=== PATIENT | female | born 1945 | race Caucasian/White ===

== ENCOUNTER → 2016-05-15 | Outpatient (CLI) | payer MEDICARE, BC ==
[~2016-05-15] MED LIST: ASPIRIN81 M1 PO; ATENOLOL PO; BACLOFEN10 MG PO; BEE POLLEN 550 MG; BIOTIN 1000 MG; CALTRATE PLUS T1 TAB PO; CERTAGEN PO; DOXYCYCLINE HYC50 MG PO; DOXYCYCLINE PO; LOPID600 MG PO; NEXIUM PO; NORVASC PO; OMEPRAZOLE20 M2 PO; SELENIUM 200 MG; ZOCOR PO
--- NOTE | ~2016-05-15 | BD1 ---
[facility] A Service of [facility] RADIOLOGY TEXT RESULTS PATIENT: BARRON FOSTER LOCATION: [facility] : 49 UNIT #: [id number] AGE: [address]: Migue Kan MD SEX: F ORDER DR: [id number] [facility] [address] [place], [place] [address] [id number] O MR#: [id number] Acc #: [id number] NAME: BARRON FOSTER. : 1945 SEX: F STUDY DATE/TIME: 05/15/2016 11:30 UNIT: [facility] ROOM: STUDY DESCRIPTION: BD Dexa Bone Dens 1+ Site Attending Physician: Migue Kan M.D. Referring Physician: Migue Kan M.D. Ordering Physician: Migue Kan M.D. Primary Care Physician: Migue Kan M.D. MEDICAL IMAGING REPORT This report is preliminary unless electronic signature is present EXAM Bone density spine and hip, 05/15/2016 HISTORY Osteoporosis. Nonsmoker. Postmenopausal. Prior lumpectomy left breast. Prior radiation treatment 2013. FINDINGS Bone density scanning performed upper 4 lumbar vertebral segments and proximal left femur in 168 pound 71-year-old female. The most recent comparison 02/16/2014. L1-L4: Bone mineral density 0.868 g/cm2 for a T-score 1.6 standard deviations below mean for a reference population normal young individuals and a Z-score 0.4 standard deviations above the mean for age-matched population. Compared to 2013 there has been a 12.3% increase in bone mineral density in the upper 4 lumbar vertebral segments overall this is felt to be statistically significant. PROXIMAL LEFT FEMUR: Total bone mineral density is 0.892 g/cm2 for a T-score 0.4 standard deviations below mean for a reference population normal young individuals and Z-score 1.1 standard deviation above the mean for age-match population. In the left femoral neck specifically the bone mineral density is 0.720 g/cm2 for a T-score 1.2 standard deviations below mean for a reference population normal young individuals and Z-score 0.6 standard deviations above the mean for age-match population. Using total bone mineral density in this region as a trending value there has been a 3.1% decrease in proximal left femoral bone mineral density compared to 2014 and this is felt to be statistically significant. IMPRESSION 1. Osteopenia in the upper 4 lumbar vertebral segments overall. Patient [facility] A Service of [facility] RADIOLOGY TEXT RESULTS PATIENT: BARRON FOSTER LOCATION: [facility] : 49 UNIT #: [id number] AGE: [address]: Migue Kan MD SEX: F ORDER DR: is felt to be at increased risk for fracture. Treatment options may be considered. Continued surveillance is recommended. 2. Incidental note is made of osteopenia in the left femoral neck as well. 3. Statistically significant increase in bone mineral density in the upper 4 lumbar vertebral segments since 2014 and statistically significant decrease in bone mineral density in the proximal left femur since 2014. Please see complete trending data in body of report above. Dictated by... Abad Arevalo M.D. THIS IS AN ELECTRONICALLY VERIFIED REPORT Abad Arevalo M.D. at 05/17/2016 5:52 PM LUCAS/ronald TD: 05/15/2016 22:32 JOB #: [id number] MEDICAL IMAGING REPORT COPY
== END | disposition home or self-care (01) ==
LOC: CWCC 11:06
DX: M81.0 Age-related osteoporosis without current pathological fracture (principal); M85.89 Other specified disorders of bone density and structure, multiple sites
CPT/HCPCS: 77080